=== PATIENT | male | born 1955 | race Caucasian/White ===

== ENCOUNTER 2018-03-26 15:42 | Inpatient (IN) | payer OTHER ==
[2018-03-26] MEDS ORDERED: MECLIZINE 25 MG TAB PO (17:00)
[2018-03-26] MEDS ORDERED: MAGNESIUM HYDROXIDE 30ML CUP PO (17:00)
[2018-03-26] MEDS ORDERED: LORAZEPAM 2 MG INJ IV (17:00)
[2018-03-26] MEDS ORDERED: ACETAMINOPHEN 325 MG TAB PO (17:00)
[2018-03-26] MEDS ORDERED: DOCUSATE SODIUM 100 MG CAP PO (17:00)
[2018-03-26] MEDS ORDERED: NACL 0.9% 3 ML SYG IV (17:00)
[2018-03-26] MEDS ORDERED: ALBUTEROL/IPRATROPIUM (NEB) 3 ML AMP HHN (17:00)
[2018-03-26] MEDS ORDERED: NITROGLYCERIN (SL) 0.4 MG TAB SL (17:00)
[2018-03-26] MEDS ORDERED: HYDROCODONE/APAP (5/325) TAB PO (17:00)
[2018-03-26] MEDS ORDERED: morphine 2 MG INJ IV (17:00)
[2018-03-26] MEDS ORDERED: ONDANSETRON 4 MG INJ IV (17:00)
[2018-03-26 19:14] LABS: FREE T4 (FREE THYROXINE) 1.28 ng/dl (0.78-2.44)
[2018-03-26] MEDS: ATORVASTATIN 20 MG TAB PO (20:45)
[2018-03-27 06:20] LABS: ADD MAN DIFF? NO
[2018-03-27 06:27] LABS: WHITE BLOOD COUNT 8.4 10^3/ul (4.8-10.8)
[2018-03-27 06:27] LABS: BASOPHIL # 0.1 10^3/ul (0.0-0.1); BASOPHILS % 0.8 % (0.0-2.0); EOSINOPHILS # 0.1 10^3/ul (0.0-0.5); EOSINOPHILS % 1.3 % (0.0-7.0); HEMATOCRIT 31.6 % (42.0-52.0); HEMOGLOBIN 9.5 g/dl (14.0-18.0); LYMPHOCYTES # 2.1 10^3/ul (0.8-2.9); LYMPHOCYTES % 25.4 % (15.0-51.0); MEAN CORPUSCULAR HEMOGLOBIN 23.9 pg (29.0-33.0); MEAN CORPUSCULAR HGB CONC 30.1 g/dl (32.0-37.0); MEAN CORPUSCULAR VOLUME 79.4 fl (82.0-101.0); MEAN PLATELET VOLUME 9.6 fl (7.4-10.4); MONOCYTE # 0.6 10^3/ul (0.3-0.9); MONOCYTES % 7.1 % (0.0-11.0); NEUTROPHIL # 5.5 10^3/ul (1.6-7.5); NEUTROPHILS % 65.2 % (39.0-77.0); PLATELET COUNT 186 10^3/UL (140-415); RED BLOOD COUNT 3.98 10^6/ul (4.70-6.10); RED CELL DISTRIBUTION WIDTH 15.9 % (11.5-14.5)
[2018-03-27 06:43] LABS: ANION GAP 10 (5-13); BLOOD UREA NITROGEN 17 mg/dl (7-20); CALCIUM 9.1 mg/dl (8.4-10.2); CARBON DIOXIDE 27 mmol/L (21-31); CHLORIDE 103 mmol/L (97-110); CHOL/HDL RATIO 2.5 RATIO; CHOLESTEROL 91 mg/dl (100-200); CREATININE 0.91 mg/dl (0.61-1.24); Estimated GFR > 60 mL/min (>60); GLUCOSE 99 mg/dl (70-220); HDL CHOLESTEROL 36 mg/dl (30-78); LDL CHOLESTEROL,CALCULATED 43 mg/dl; POTASSIUM 4.2 mmol/L (3.5-5.1); SODIUM 140 mmol/L (135-144); TRIGLYCERIDES 58 mg/dl (0-149)
[2018-03-27] MEDS: ASPIRIN 81 MG TAB PO (08:09)
[2018-03-27] MEDS: ALLOPURINOL 100 MG TAB PO (08:09)
[2018-03-27] MEDS: FUROSEMIDE 40 MG INJ IV (08:10)
[2018-03-27 09:07] LABS: B-TYPE NATRIURETIC PEPTIDE 532 PG/ML (0-125)
[2018-03-27 09:16] LABS: FREE T4 (FREE THYROXINE) 1.29 ng/dl (0.78-2.44)
[2018-03-27 09:55] LABS: HEMOGLOBIN A1C 5.6 % (0-5.9)
[2018-03-27] MEDS: ASPIRIN (EC) 81 MG TAB PO (18:17)
[2018-03-27] MEDS: ATORVASTATIN 80 MG TAB PO ×2 (18:17→20:12)
[2018-03-28 06:48] LABS: ADD MAN DIFF? NO
[2018-03-28 06:51] LABS: BASOPHIL # 0.1 10^3/ul (0.0-0.1); BASOPHILS % 0.7 % (0.0-2.0); EOSINOPHILS # 0.1 10^3/ul (0.0-0.5); EOSINOPHILS % 1.5 % (0.0-7.0); HEMOGLOBIN 9.9 g/dl (14.0-18.0); LYMPHOCYTES # 1.8 10^3/ul (0.8-2.9); LYMPHOCYTES % 24.1 % (15.0-51.0); MEAN CORPUSCULAR HEMOGLOBIN 23.9 pg (29.0-33.0); MEAN CORPUSCULAR VOLUME 79.7 fl (82.0-101.0); MEAN PLATELET VOLUME 9.8 fl (7.4-10.4); MONOCYTE # 0.7 10^3/ul (0.3-0.9); MONOCYTES % 9.4 % (0.0-11.0); NEUTROPHIL # 4.7 10^3/ul (1.6-7.5); PLATELET COUNT 205 10^3/UL (140-415); RED BLOOD COUNT 4.14 10^6/ul (4.70-6.10); RED CELL DISTRIBUTION WIDTH 15.9 % (11.5-14.5)
[2018-03-28 06:51] LABS: WHITE BLOOD COUNT 7.3 10^3/ul (4.8-10.8)
[2018-03-28 07:36] LABS: ANION GAP 10 (5-13); BLOOD UREA NITROGEN 23 mg/dl (7-20); CALCIUM 9.3 mg/dl (8.4-10.2); CARBON DIOXIDE 33 mmol/L (21-31); CHLORIDE 100 mmol/L (97-110); CREATININE 1.12 mg/dl (0.61-1.24); Estimated GFR > 60 mL/min (>60); GLUCOSE 98 mg/dl (70-220); POTASSIUM 4.1 mmol/L (3.5-5.1); SODIUM 143 mmol/L (135-144)
[2018-03-28] MEDS: ASPIRIN 81 MG TAB PO (08:17)
[2018-03-28] MEDS: FUROSEMIDE 40 MG INJ IV (08:17)
[2018-03-28] MEDS ORDERED: METOPROLOL (XL) 25 MG TAB PO (09:00)
[2018-03-28] MEDS ORDERED: IODIXANOL LOCM 100 ML BTL (12:33)
[2018-03-28] MEDS ORDERED: SOD CHLORIDE 0.9% 100 ML (12:33)
[2018-03-28 13:50] LABS: ERYTHROCYTE SEDIMENTATION RATE 12 mm/Hr (0-20)
[2018-03-28 14:49] LABS: AMPHETAMINE/METHAMPHETAMINE Negative (NEGATIVE); BARBITURATES Negative (NEGATIVE); BENZODIAZEPINES Negative (NEGATIVE); CANNABINOIDS Negative (NEGATIVE); COCAINE Negative (NEGATIVE); OPIATES Negative (NEGATIVE)
[2018-03-28 15:20] LABS: RAPID PLASMA REAGIN NONREACTIVE (NR)
[2018-03-28] MEDS: ATORVASTATIN 80 MG TAB PO (20:48)
[2018-03-29] MEDS: hydrALAzine 20 MG INJ IV (04:25)
[2018-03-29 07:44] LABS: ADD MAN DIFF? NO
[2018-03-29 07:55] LABS: WHITE BLOOD COUNT 7.9 10^3/ul (4.8-10.8)
[2018-03-29 07:55] LABS: BASOPHIL # 0.1 10^3/ul (0.0-0.1); EOSINOPHILS # 0.1 10^3/ul (0.0-0.5); EOSINOPHILS % 1.3 % (0.0-7.0); HEMATOCRIT 36.9 % (42.0-52.0); HEMOGLOBIN 11.4 g/dl (14.0-18.0); LYMPHOCYTES # 1.6 10^3/ul (0.8-2.9); LYMPHOCYTES % 20.1 % (15.0-51.0); MEAN CORPUSCULAR HEMOGLOBIN 23.7 pg (29.0-33.0); MEAN CORPUSCULAR HGB CONC 30.9 g/dl (32.0-37.0); MEAN CORPUSCULAR VOLUME 76.7 fl (82.0-101.0); MEAN PLATELET VOLUME 9.6 fl (7.4-10.4); MONOCYTE # 0.8 10^3/ul (0.3-0.9); MONOCYTES % 9.6 % (0.0-11.0); NEUTROPHIL # 5.3 10^3/ul (1.6-7.5); NEUTROPHILS % 67.6 % (39.0-77.0); PLATELET COUNT 241 10^3/UL (140-415); RED BLOOD COUNT 4.81 10^6/ul (4.70-6.10); RED CELL DISTRIBUTION WIDTH 15.8 % (11.5-14.5)
[2018-03-29] MEDS: ASPIRIN 81 MG TAB PO (08:02)
[2018-03-29] MEDS: FUROSEMIDE 40 MG INJ IV (08:03)
[2018-03-29 08:14] LABS: ANION GAP 8 (5-13); BLOOD UREA NITROGEN 17 mg/dl (7-20); CALCIUM 10.1 mg/dl (8.4-10.2); CARBON DIOXIDE 31 mmol/L (21-31); CHLORIDE 102 mmol/L (97-110); CREATININE 0.89 mg/dl (0.61-1.24); Estimated GFR > 60 mL/min (>60); GLUCOSE 97 mg/dl (70-220); POTASSIUM 3.7 mmol/L (3.5-5.1); SODIUM 141 mmol/L (135-144)
[2018-03-29] MEDS: METOPROLOL (XL) 25 MG TAB PO (20:12)
[2018-03-29] MEDS: LOSARTAN 50 MG TAB PO (20:13)
[2018-03-29] MEDS: ATORVASTATIN 80 MG TAB PO (20:13)
[2018-03-30 08:30] LABS: ADD MAN DIFF? NO
[2018-03-30 08:36] LABS: WHITE BLOOD COUNT 9.8 10^3/ul (4.8-10.8)
[2018-03-30 08:36] LABS: BASOPHIL # 0.1 10^3/ul (0.0-0.1); EOSINOPHILS # 0.2 10^3/ul (0.0-0.5); EOSINOPHILS % 1.7 % (0.0-7.0); HEMATOCRIT 39.9 % (42.0-52.0); HEMOGLOBIN 12.2 g/dl (14.0-18.0); LYMPHOCYTES # 2.5 10^3/ul (0.8-2.9); LYMPHOCYTES % 25.2 % (15.0-51.0); MEAN CORPUSCULAR HEMOGLOBIN 23.6 pg (29.0-33.0); MEAN CORPUSCULAR HGB CONC 30.6 g/dl (32.0-37.0); MEAN CORPUSCULAR VOLUME 77.3 fl (82.0-101.0); MEAN PLATELET VOLUME 10.1 fl (7.4-10.4); MONOCYTE # 0.8 10^3/ul (0.3-0.9); MONOCYTES % 7.7 % (0.0-11.0); NEUTROPHIL # 6.3 10^3/ul (1.6-7.5); NEUTROPHILS % 64.1 % (39.0-77.0); PLATELET COUNT 265 10^3/UL (140-415); RED BLOOD COUNT 5.16 10^6/ul (4.70-6.10); RED CELL DISTRIBUTION WIDTH 15.9 % (11.5-14.5)
[2018-03-30] MEDS: LOSARTAN 50 MG TAB PO ×2 (09:00→09:34)
[2018-03-30 09:04] LABS: ANION GAP 14 (5-13); BLOOD UREA NITROGEN 18 mg/dl (7-20); CALCIUM 10.1 mg/dl (8.4-10.2); CARBON DIOXIDE 31 mmol/L (21-31); CHLORIDE 96 mmol/L (97-110); CREATININE 1.12 mg/dl (0.61-1.24); Estimated GFR > 60 mL/min (>60); GLUCOSE 100 mg/dl (70-220); POTASSIUM 4.1 mmol/L (3.5-5.1); SODIUM 141 mmol/L (135-144)
[2018-03-30] MEDS: ASPIRIN 81 MG TAB PO (09:31)
[2018-03-30] MEDS: NIFEdipine (XL) 30 MG TAB PO (09:33)
[2018-03-30] MEDS: TAMSULOSIN (SR) 0.4 MG CAP PO (09:33)
[2018-03-30] MEDS: METOPROLOL (XL) 25 MG TAB PO (09:33)
== END 2018-03-30 13:59 | disposition home or self-care (01) | DRG 64 ==
LOC: TEL 03-27 18:38
PROVIDERS: Hospitalist
DX: I63.9 Cerebral infarction, unspecified (principal); I50.33 Acute on chronic diastolic (congestive) heart failure; I42.1 Obstructive hypertrophic cardiomyopathy; R00.1 Bradycardia, unspecified; E78.5 Hyperlipidemia, unspecified; I25.10 Atherosclerotic heart disease of native coronary artery without angina pectoris; I11.0 Hypertensive heart disease with heart failure; I44.7 Left bundle-branch block, unspecified
CPT/HCPCS: 70544; 70549; 70551; 71045; 80048; 80061; 80307; 83036; 83735; 83880; 84100; 84439; 84443; 85025; 85651; 86592; 92610; 93005; 93306; 93880; 97161